=== PATIENT | female | born 1975 | race Caucasian/White ===

== ENCOUNTER 2017-04-22 16:35 | Emergency (ER) | payer MEDICAID ==
[2017-04-22] MEDS ORDERED: diphenhydrAMINE 50 MG/ML SDV IVPUSH ONE (17:13)
[2017-04-22] MEDS ORDERED: Metoclopramide 10 MG/2 ML SDV IVPUSH ONE (17:13)
[2017-04-22] MEDS ORDERED: Sodium Chloride 0.9% 10 ML Syringe FLUSH PRN (17:13)
[2017-04-22] MEDS ORDERED: Ketorolac 30 MG/ML SDV IVPUSH SCH (17:15)
--- NOTE | 2017-04-22 18:33 | EDM.PDOC ---
ED HPI GENERAL MEDICAL PROBLEM - General Chief Complaint: Headache Stated Complaint: MIGRAINE Time Seen by Provider: 04/22/17 16:50 Source of Information: Reports: Patient, RN Notes Reviewed - History of Present Illness INITIAL COMMENTS - FREE TEXT/NARRATIVE: 42-year-old female comes in with headache. She had onset of this headache this past morning. She states that she does get headache every 1-2 weeks. Normally she can take Tylenol, rest and the headache will go away. The headache got worse and she also has had nausea and vomiting. The headache is been quite generalized. No recent sinus problems, fever or chills. No focal neurologic symptoms. She's never had head CT or MRI. She states she's been getting headaches off and on for about 10 years but recently more frequent with this the most severe headache ever. Posterior Headache Pain Score (Numeric/FACES): 9 - Related Data Allergies Allergy/AdvReac Type Severity Reaction Status Date / Time cephalexin [From Keflex] Allergy Rash Verified 04/22/17 16:53 Home Meds: Home Meds . [No Known Home Meds] 04/22/17 [History] Past Medical History - Past Surgical History GI Surgical History: Reports: Appendectomy Other GI Surgeries/Procedures: exploratory Social & Family History - Tobacco Use Smoking Status *Q: Current Every Day Smoker Years of Tobacco use: 15 Packs/Tins Daily: 1 - Caffeine Use Caffeine Use: Reports: Coffee, Soda - Recreational Drug Use Recreational Drug Use: No ED ROS GENERAL - Review of Systems Review Of Systems: See Below Constitutional: Denies: Fever, Chills HEENT: Reports: No Symptoms Respiratory: Denies: Shortness of Breath Cardiovascular: Denies: Chest Pain GI/Abdominal: Reports: Nausea, Vomiting. Denies: Abdominal Pain Musculoskeletal: Denies: Neck Pain, Back Pain, Joint Pain Skin: Reports: No Symptoms Neurological: Reports: Dizziness, Headache. Denies: Numbness, Tingling, Trouble Speaking, Difficulty Walking, Weakness - Physical Exam Exam: See Below General Appearance: Alert, Mild Distress Eye Exam: Bilateral Eye: PERRL Throat/Mouth: Normal Inspection, Normal Oropharynx Head Exam: Atraumatic. No: Facial Swelling Neck: Supple, Full Range of Motion Respiratory/Chest: No Respiratory Distress, Lungs Clear, Normal Breath Sounds Cardiovascular: Regular Rate, Rhythm GI/Abdominal: Soft, Non-Tender Neuro Exam (Abbreviated): Alert, Oriented, No Motor/Sensory Deficits, Other ( [id number] testing normal) Extremities: Normal Inspection, Normal Range of Motion Skin Exam: Warm, Dry, Normal Color Course - Vital Signs Last Recorded V/S: Last Vital Signs Temp 97.8 F 04/22/17 16:49 Pulse 88 04/22/17 18:40 Resp 16 04/22/17 18:40 BP 129/85 04/22/17 18:40 Pulse Ox 94 L 04/22/17 18:40 - Orders/Labs/Meds Orders: Active Orders 24 hr Category Date Time Status Peripheral IV Care [RC] . DIRECTED Care 04/22/17 17:14 Active Ketorolac [Toradol] Med 04/22/17 17:15 Active 30 mg IVPUSH ONETIME Sodium Chloride 0.9% [Saline Flush] Med 04/22/17 17:13 Active 10 ml FLUSH ASDIRECTED PRN Peripheral IV Insertion Adult [OM.PC] Stat Oth 04/22/17 17:13 Ordered Medication Orders Ketorolac Tromethamine (Toradol) 30 mg IVPUSH ONETIME JOAQUIN Last Admin: 04/22/17 17:38 Dose: 30 mg Sodium Chloride (Saline Flush) 10 ml FLUSH ASDIRECTED PRN PRN Reason: Keep Vein Open Last Admin: 04/22/17 17:38 Dose: 10 ml Meds: Medications Generic Name Dose Route Start Last Admin Trade Name Freq PRN Reason Stop Dose Admin Ketorolac Tromethamine 30 mg 04/22/17 17:15 04/22/17 17:38 Toradol IVPUSH 30 mg ONETIME JOAQUIN Administration Sodium Chloride 10 ml 04/22/17 17:13 04/22/17 17:38 Saline Flush FLUSH 10 ml ASDIRECTED PRN Administration Keep Vein Open Discontinued Medications Generic Name Dose Route Start Last Admin Trade Name Freq PRN Reason Stop Dose Admin Diphenhydramine HCl 25 mg 04/22/17 17:13 04/22/17 17:38 Benadryl IVPUSH 04/22/17 17:14 25 mg ONETIME ONE Administration Metoclopramide HCl 10 mg 04/22/17 17:13 04/22/17 17:38 Reglan IVPUSH 04/22/17 17:14 10 mg ONETIME ONE Administration - Re-Assessments/Exams Free Text/Narrative Re-Assessment/Exam: 04/22/17 19:26 She did have complete resolution of her headache fairly quickly after IV Toradol , Zofran and Reglan. I discussed with her previously that she would be a candidate for outpatient MRI considering frequency of headaches and now this headache more severe than any prior headache. Her for outpatient order was written for MRI of the head with and without contrast. Radiology will call her Monday to set up a time for that. Discharge instructions as documented Departure - Departure Time of Disposition: 18:33 Disposition: Home, Self-Care 01 Condition: Fair Clinical Impression: Migraine - Discharge Information Instructions: Migraine Headache, [id number] Referrals: Madalyn Ivey [facility] DIRECTOR [Primary Care Provider] - Forms: ED Department Discharge Additional Instructions: Rest, you may take Tylenol if needed for further headache, you have been given sedative medications so no driving until morning, MRI has been ordered, Radiology department will contact you Monday to give you a time to come in and have that done, follow-up after the MRI [facility], return to ED if symptoms worsening in any way - My Orders Last 24 Hours: My Active Orders 04/22/17 17:13 Sodium Chloride 0.9% [Saline Flush] 10 ml FLUSH ASDIRECTED PRN Peripheral IV Insertion Adult [OM.PC] Stat 04/22/17 17:14 Peripheral IV Care [RC] . DIRECTED 04/22/17 17:15 Ketorolac [Toradol] 30 mg IVPUSH ONETIME - Assessment/Plan Last 24 Hours: My Active Orders 04/22/17 17:13 Sodium Chloride 0.9% [Saline Flush] 10 ml FLUSH ASDIRECTED PRN Peripheral IV Insertion Adult [OM.PC] Stat 04/22/17 17:14 Peripheral IV Care [RC] . DIRECTED 04/22/17 17:15 Ketorolac [Toradol] 30 mg IVPUSH ONETIME
== END 2017-04-22 18:45 | disposition home or self-care (01) ==
LOC: JD.ED 16:35
DX: G43.909 Migraine, unspecified, not intractable, without status migrainosus (principal); F17.210 Nicotine dependence, cigarettes, uncomplicated; Z88.1 Allergy status to other antibiotic agents
CPT/HCPCS: 96374; 96375; 99284; J1200; J1885; J2765; J7050

== ENCOUNTER 2021-10-07 08:09 | Emergency (ER) | payer SELFPAY ==
[2021-10-07] MEDS ORDERED: methylPREDNISolone Sodium Succinate 2 GM Vial IV ONE (09:07)
== END 2021-10-07 12:36 | disposition home or self-care (01) ==
LOC: JD.ED 08:09
DX: H46.9 Unspecified optic neuritis (principal); Z88.1 Allergy status to other antibiotic agents; Z72.0 Tobacco use
CPT/HCPCS: 96365; 99283; J2930; J7050